=== PATIENT | male | born 2000 | race Caucasian/White ===

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

== ENCOUNTER 2025-01-21 01:14 | Emergency (ER) | payer OTHER ==
[~2025-01-21] VITALS: Ht 182.9 cm; Wt 63.6 kg
[~2025-01-21 01:14] MED LIST: NO MEDICATIONS
[2025-01-21 01:47] VITALS: TEMP 97.6
[2025-01-21] MEDS ORDERED: AMOX875T2 PO (01:48)
[2025-01-21] MEDS: AUGMENTIN 875 MG TAB PO ONE (01:56)
[2025-01-21] MEDS: TETANUS/DIPHTH/ACEL. PERTUSSIS 0.5 ML SYR IM.IMMUN ONE (01:57)
[2025-01-21 02:30] VITALS: BP 108/59; O2SAT 95
== END 2025-01-21 02:45 | disposition home or self-care (01) ==
LOC: M ED 01:14
DX: S71.132A Puncture wound without foreign body, left thigh, initial encounter (principal); W54.0XXA Bitten by dog, initial encounter; Y92.009 Unspecified place in unspecified non-institutional (private) residence as the place of occurrence of the external cause; Y93.89 Activity, other specified; Y99.9 Unspecified external cause status; Z79.2 Long term (current) use of antibiotics; Z79.899 Other long term (current) drug therapy; Z23 Encounter for immunization